=== PATIENT | male | born 1955 | race Caucasian/White ===

== ENCOUNTER 2016-10-08 15:03 | Emergency (ER) | payer SELFPAY ==
[~2016-10-08] VITALS: Ht 182.9 cm; Wt 74.8 kg
--- NOTE | 2016-10-08 15:10 | NUR ---
PATIENT PRESENTS TO ER C/O BLURRED VISION. PATIENT IS A/OX 4. BREATHING EVEN AND UNLABORED. NO SOB. NO DISTRESS. SAFETY AND COMFORT MEASURES IN PLACE. AWAITING MD ORDERS.
--- NOTE | 2016-10-08 16:06 | NUR ---
CALLED DR LOUISE ESTRADA FOR CONSULT, TRANSFERRED CALL TO DR REID
[2016-10-08 16:23] VITALS: BP 152/86
--- NOTE | 2016-10-08 16:24 | NUR ---
Patient discharged to home in stable condition. Written and verbal after care instructions given. Patient verbalizes understanding of instruction.
== END 2016-10-08 16:24 | disposition home or self-care (01) ==
LOC: ER 15:06
DX: H33.21 Serous retinal detachment, right eye (principal)
CPT/HCPCS: A4606; Z7610